=== PATIENT | male | born 1955 | race Caucasian/White ===

== ENCOUNTER 2016-04-19 08:00 | Day surgery (SDC) | payer OTHER ==
[~2016-04-19] VITALS: Ht 172.7 cm; Wt 86.2 kg
[~2016-04-19 08:00] MED LIST: 0.9% Sodium Chloride 1,000 ML IV PRN; ACYC400T2 PO; ACYC5CRE2 TP; ASCO100089 PO; CALC1POW29 MC; CALC1POW29 PO; CARB1TAB14 PO; CHOL10008 PO; CYAN500 PO; DOCU250C2 PO; ENTA200T6 PO; KRIL1CAP19 PO; MULT-1018 PO; RASA1TAB2 PO; SILD20TA14 PO; VARI1940 SQ; VITA400C66 PO; fentaNYL-PF 50 mCg/mL 2 mL Inj IVPUSH PRN
[2016-04-19 08:21] VITALS: BP 119/81; PULSE 90; RESP 16; O2SAT 96
[2016-04-19] MEDS ORDERED: ROTI1PAT8 TD (08:32)
[2016-04-19] MEDS ORDERED: 0.9% Sodium Chloride 1,000 ML IV PRN (08:54)
[2016-04-19] MEDS ORDERED: Sodium Chloride LOK Flush 10 mL Syringe IV PRN (08:55)
[2016-04-19] MEDS ORDERED: fentaNYL-PF 50 mCg/mL 2 mL Inj IVPUSH PRN (08:55)
[2016-04-19 09:21] VITALS: BP 126/83; PULSE 72; RESP 12; O2SAT 92
[2016-04-19 09:30] VITALS: BP 130/69; PULSE 73; RESP 14; O2SAT 90
[2016-04-19 09:40] VITALS: BP 138/69; PULSE 77; RESP 16; O2SAT 96
--- NOTE | 2016-04-19 09:42 | ENDO ---
[address] [address] ENDOSCOPY PROCEDURE PATIENT: JARRED REYNOLDS : 1955 MR#: [id number] ADMIT: 04/19/2016 JOB ID: [id number] DATE: 04/19/2016 PREOPERATIVE DIAGNOSIS: Personal history of colon polyps. POSTOPERATIVE DIAGNOSIS: Minimal sigmoid diverticulosis. OPERATION: Colonoscopy to cecum. SURGEON: Bruce Nina MD. INDICATIONS: A 60-year-old man who has a personal history of colon polyps. He also has all multi-fenestrated incisional hernia and he is being evaluated for potential repair. He has not had a colonoscopy for a number years and was recommended to do a colonoscopy first. FINDINGS: He had a fair prep. The scope was advanced to the cecum. It was withdrawn over 7 minutes 29 seconds. The appendiceal orifice clearly identified as was the ileocecal valve and right lower quadrant percussion sign. The only abnormality was a solitary left-sided diverticulum. Retroflexed views of the rectum were normal. I saw no polyps. There is no evidence of inflammation or vascular lesions. DESCRIPTION OF PROCEDURE: The procedure and sedation plan was discussed with the patient and nursing staff, and a procedural time-out was held. He received 4 mg of Versed and 100 mcg of fentanyl. Digital rectal exam was performed and then the Olympus PCF H 190 DL video colonoscope was passed transanally, advanced to the cecum, withdrawn with results as stated above using suction and irrigation as necessary and obtaining retroflexed views of the rectum. IMPRESSION: Minimal left-sided diverticulosis. Otherwise normal colonoscopy to cecum. PLAN: He will complete the CT scan of his abdomen and return to my office for followup. He needs a colonoscopy in 10 years.
[2016-04-19 09:50] VITALS: BP 117/69; PULSE 83; RESP 16; O2SAT 94
== END 2016-04-19 23:59 | disposition home or self-care (01) ==
LOC: END 08:00
PROVIDERS: ATTEND Surgery
DX: Z12.11 Encounter for screening for malignant neoplasm of colon (principal); Z86.010 Personal history of colon polyps; K57.30 Diverticulosis of large intestine without perforation or abscess without bleeding; G20 Parkinson's disease; K21.9 Gastro-esophageal reflux disease without esophagitis; K43.2 Incisional hernia without obstruction or gangrene; Z93.3 Colostomy status
CPT/HCPCS: G0105; G0500; J2250; J3010; J7030

== ENCOUNTER 2016-06-11 05:25 | Day surgery (SDC) | payer OTHER ==
[~2016-06-11] VITALS: Ht 172.7 cm; Wt 92.3 kg
[2016-06-11] VITALS (14 sets, daily range): BP systolic 106–151; BP diastolic 59–85; PULSE 73–98; RESP 9–18; O2SAT 93–97
[2016-06-11] MEDS: Lactated Ringer's 1,000 ML IV SCH ×4 (05:00→09:24)
[~2016-06-11 05:25] MED LIST changes: -0.9% Sodium Chloride 1,000 ML IV PRN; -ACYC400T2 PO; -ACYC5CRE2 TP; -CALC1POW29 PO; -DOCU250C2 PO; -KRIL1CAP19 PO; +ROTI1PAT8 TD; -SILD20TA14 PO; -VARI1940 SQ; -VITA400C66 PO; -fentaNYL-PF 50 mCg/mL 2 mL Inj IVPUSH PRN
[2016-06-11] MEDS ORDERED: Ketamine 10 mg/mL 20 mL Inj ONE (05:26)
[2016-06-11] MEDS ORDERED: Dexamethasone 4 mg/mL Inj ONE (05:26)
[2016-06-11] MEDS ORDERED: Propofol 10,000 mCg/mL 20 mL Inj ONE (05:26)
[2016-06-11] MEDS ORDERED: Neostigmine 1 mg/mL 10 mL Inj ONE (05:26)
[2016-06-11] MEDS ORDERED: Ondansetron 2 mg/mL 2 mL Inj ONE (05:26)
[2016-06-11] MEDS ORDERED: fentaNYL-PF 50 mCg/mL 2 mL Inj ONE (05:26)
[2016-06-11] MEDS ORDERED: EPHEDrine/NS 5 mg/mL 5 mL Syringe ONE (05:26)
[2016-06-11] MEDS ORDERED: Glycopyrrolate 0.2 MG/ML 1mL Inj ONE (05:26)
[2016-06-11] MEDS ORDERED: Rocuronium 10 mg/mL 5 mL Inj ONE (05:26)
[2016-06-11] MEDS ORDERED: CeFAZolin Inj 2 gm / 50mL D5W IV ONE (05:49)
[2016-06-11] MEDS ORDERED: CeFAZolin 2 Gm/50 mL D5W IV Premix IV ONE (06:00)
[2016-06-11] MEDS ORDERED: Heparin 5,000 Unit/mL Inj SUBQ ONE ×2 (06:00→08:00)
[2016-06-11] MEDS ORDERED: Lactated Ringer's 500 ML IV PRN (08:15)
[2016-06-11] MEDS ORDERED: Phenylephrine 10,000 mCg/mL Inj IVPUSH PRN (08:15)
[2016-06-11] MEDS ORDERED: Labetalol 5 mg/mL 4 mL Inj IV PRN (08:15)
[2016-06-11] MEDS ORDERED: Lactated Ringer's 1,000 ML IV SCH (08:15)
[2016-06-11] MEDS ORDERED: fentaNYL-PF 50 mCg/mL 2 mL Inj IVPUSH PRN (08:15)
[2016-06-11] MEDS ORDERED: EPHEDrine Sulfate 50 mg/mL Inj IVPUSH PRN (08:15)
[2016-06-11] MEDS ORDERED: Dexamethasone 4 mg/mL Inj IVPUSH PRN (08:15)
[2016-06-11] MEDS ORDERED: Atropine 0.4 mg/mL Inj IVPUSH PRN (08:15)
[2016-06-11] MEDS ORDERED: MetoCLOpramide 5 mg/mL 2 mL Inj IVPUSH PRN ×2 (08:15→10:40)
[2016-06-11] MEDS ORDERED: Ondansetron 2 mg/mL 2 mL Inj IVPUSH PRN ×2 (08:15→10:40)
[2016-06-11] MEDS ORDERED: HYDROmorphone 1 mg/mL Inj IVPUSH PRN (08:15)
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
[2016-06-11] MEDS ORDERED: Bupivacaine-MPF 0.5% 30 mL Inj INFILTRATE ONE (08:26)
--- NOTE | 2016-06-11 10:56 | PCM.ANEP1 ---
Post Anesthesia Phase 1 PACU Phase 1 Assessment Date of Service: Jun 11, 2016 Vital Signs Vital Signs Date Time Temp Pulse Resp B/P Pulse Ox O2 Delivery O2 Flow Rate FiO2 06/11/16 10:50 76 16 119/75 96 Simple Mask 8 06/11/16 10:45 36.2 74 13 121/80 96 Simple Mask 8 06/11/16 10:40 79 17 119/75 96 Simple Mask 8 06/11/16 10:35 74 11 113/70 96 Simple Mask 8 06/11/16 10:30 74 11 107/59 96 Simple Mask 8 06/11/16 10:25 36.8 73 9 106/61 95 Simple Mask 8 06/11/16 05:54 36.2 83 16 111/72 97 Room Air Anesthetic Administered: GA Level of Alertness: Drowsy, not talking Pain: No Nausea or Vomiting: No Airway Device: Oralpharangeal Airway Oxygen Delivery: Simple Mask Lungs: Clear to Auscultation, Normal Air Movement Sen Palacio DO Jun 11, 2016 10:56
[2016-06-11] MEDS: Acetaminophen IV 1,000 MG in IV Premix 1 EACH IV PRN ×2 (11:02→11:21)
[2016-06-11] MEDS: Dextrose 5% Lactated Ringer's 1,000 ML IV SCH ×3 (11:57→21:48)
[2016-06-11] MEDS: Entacapone 200 mg Tablet PO SCH ×2 (13:04→19:46)
--- NOTE | 2016-06-11 13:21 | PCM.ANEP2 ---
Post Anesthesia Evaluation ASA/CMS Post Anesthesia Date of Service: Jun 11, 2016 VS in Patient's Normal Range?: Yes Resp Stable; Airway Patent?: Yes CV Function & Hydration Stable: Yes Mental Status Recovered?: Yes Pain control Satisfactory?: Yes N/V Control Satisfactory?: Yes Sen Palacio DO Jun 11, 2016 13:21
[2016-06-11] MEDS: Heparin 5,000 Unit/mL Inj SUBQ SCH (17:08)
[2016-06-11] MEDS: HYDROmorphone 1 mg/mL Inj IVPUSH PRN (18:10)
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
[2016-06-12 00:10] VITALS: BP 125/77; PULSE 88; RESP 16; O2SAT 95
[2016-06-12] MEDS: Heparin 5,000 Unit/mL Inj SUBQ SCH ×2 (00:42→07:57)
[2016-06-12] MEDS: HYDROmorphone 1 mg/mL Inj IVPUSH PRN ×2 (00:55→03:23)
[2016-06-12] MEDS: Entacapone 200 mg Tablet PO SCH (03:58)
[2016-06-12] MEDS ORDERED: AZILECT 1 MG PO SCH (04:00)
[2016-06-12 05:20] VITALS: BP 137/78; PULSE 85; RESP 17; O2SAT 95
--- NOTE | 2016-06-12 08:24 | PCM.DISURG ---
Surgical Discharge Instruction Date of Service Jun 12, 2016 Dates of Hospitalization Date of Hospital Admission Providers Admitting Physician: Primary Care Physician: Rosy Holman MD Attending Physician: Bruce Nina MD Discharge Diagnosis Discharge Diagnosis 1. Multi-fenestrated incarcerated midline incisional hernia. 2. Incarcerated hernia at old left colostomy site. 3. Obesity, BMI 30.9 Post Operative diagnosis Same Diet Discharge Diet: No restrictions Activity Discharge Activity-General: Balance rest and activity, Activity as energy allows, No lifting >15 pounds for 2 weeks, No driving while taking narcotic Dressing and Incisional Care Dressing Care: Keep dressing clean, dry & intact, Allow Steri Stripes to fall off, Remove outer dressing after 24 hrs Hygiene: May shower Additional Instructions Discharge Instructions Please keep abdominal binder on at all times until follow up in clinic. Follow Up Plan Follow-up Provider (F9): Bruce Nina MD Follow-up appointment: Weeks (2) Call your provider for: Fever, Chills, Increasing abdominal pain, Wound redness , Increasing wound pain, Warmth to touch, Discharge @ incision, pus discharge Marlo Baumann PA-C Jun 12, 2016 08:24
[2016-06-12] MEDS ORDERED: NEUPRO 8 MG TOPICAL SCH (08:30)
[2016-06-12] MEDS ORDERED: Ascorbic Acid 500 mg Tablet PO SCH (08:30)
--- NOTE | 2016-06-12 09:01 | PCM.PNSURG ---
Subjective Date of Service: Jun 12, 2016 Date of Service: Jun 12, 2016 Visit Information: Reason for Visit Incisional Hernia Surgery/Surgery Date [facility] HERNIA REPAIR 06/11/16 Post-Op Day # 1 Date of Admission: Hospital Day # 2 Subjective: Pt seen today in surgical room. Very few complaints elicited today. Although denies BM, has noted extensive flatus which is normal for him at this juncture. Denies nausea or vomiting or anything more than appropriate incisional abdominal tenderness. Denies chest pain, or shortness of breath. Postop General: No Complaints, No Shortness of Breath, No Chest Pain Gastrointestinal: Good Appetite, No N/V, Passing Flatus Pain Management: PO, Good Pain Control, No or Minimal Pain (appropriate incisional pain noted) Postop Activity: Ambulating Independently Objective Vital Sign- Last 8 Hours Date Time Temp Pulse Resp B/P Pulse Ox O2 Delivery O2 Flow Rate FiO2 06/12/16 05:20 36.7 85 17 137/78 95 Room Air Intake and Output- Last 8 Hour 06/12/16 Cumulative From/Thru 07:00 06/07/16 15:07 - 06/12/16 06:25 Intake Total 520 ml 3690 ml Output Total 1450 ml 1870 ml Balance -930 ml 1820 ml Intake Oral 520 ml 1440 ml IV Total 2250 ml Output Urine Total 1450 ml 1850 ml Estimated Blood Loss 20 ml # Bowel Movements 0 0 General: Alert, Oriented X3, Cooperative, No Acute Distress Lungs: Clear to Auscultation Heart: Regular Rate/Rhythm, Normal S1, Normal S2, No Murmurs/Rubs/Gallops Chest: clear to auscultation with good excursion. No wheezes. Abdomen: Soft, Appropriately tender, Non-distended, Normoactive bowel tones SURGICAL WOUND : Wound General Appearence: Steri Strips, Intact, Well Approximated, Incision Healing, No Erythema, No Discharge, No Inflammatory Changes Dressing & Drainage Status: Intact, Reinforced, No Purulent Drainage Extremities: Distal Pulses Palpable, Warm Assessment & Plan Impression POD #2 status post enterolysis of incarcerated incisional hernia and old colostomy site, Problems: (1) Incisional hernia Status: Acute ICD Code: K43.2 Plan Discharge to home today. Abdominal binder leave in place x 3 weeks. Follow up with Dr. Nina in post-op general surgery clinic in 2 weeks. Off work for 3 weeks. Naprosyn for pain control at discharge. Pain Management: Naprosyn 500mg every 6 hours prn pain Resuscitation Status: CPR: Attempt Resuscitation Marlo Baumann PA-C Jun 12, 2016 09:01
--- NOTE | 2016-06-12 09:15 | PCM.DC.SUR ---
Discharge Summary Date of Service: Jun 12, 2016 Date of Hospital Admission: June 11, 2016 Date of Operation(s): June 11, 2016 Date of Discharge: June 12, 2016 Diagnosis at Time of Discharge 1. Multi-fenestrated incarcerated midline incisional hernia. 2. Incarcerated hernia at old left colostomy site. Problems: (1) Incisional hernia Status: Acute ICD Code: K43.2 (2) Parkinson disease Status: Acute ICD Code: G20 Operation 1. Exploratory laparoscopy with extensive lysis of adhesions. 2. Repair multi-fenestrated incarcerated midline incisional hernia with mesh. 3. Repair of multi-fenestrated incarcerated left colostomy site hernia with mesh. Brief History and Physical: Vital Sign- Last 8 Hours Date Time Temp Pulse Resp B/P Pulse Ox O2 Delivery O2 Flow Rate FiO2 06/12/16 05:20 36.7 85 17 137/78 95 Room Air Intake and Output- Last 8 Hour 06/12/16 Cumulative From/Thru 07:00 06/07/16 15:07 - 06/12/16 06:25 Intake Total 520 ml 3690 ml Output Total 1450 ml 1870 ml Balance -930 ml 1820 ml Intake Oral 520 ml 1440 ml IV Total 2250 ml Output Urine Total 1450 ml 1850 ml Estimated Blood Loss 20 ml # Bowel Movements 0 0 General: Alert, Oriented X3, Cooperative, No Acute Distress Lungs: Clear to Auscultation Heart: Regular Rate/Rhythm, Normal S1, Normal S2, No Murmurs/Rubs/Gallops Chest: clear to auscultation with good excursion. No wheezes. Abdomen: Soft, Appropriately tender, Non-distended, Normoactive bowel tones SURGICAL WOUND : Wound General Appearence: Steri Strips, Intact, Well Approximated, Incision Healing, No Erythema, No Discharge, No Inflammatory Changes Dressing & Drainage Status: Intact, Reinforced, No Purulent Drainage Extremities: Distal Pulses Palpable, Warm Consultants: None Hospital Course: Patient was taken to the operating room for repair of his incarcerated hernia. Please see operative note for details. The procedure was performed without complication and he tolerated the procedure well. He was then transferred to the surgical floor where he remained for the balance of his hospital stay. On postoperative day number 1 he was found to have excellent pain control and was tolerating a diet. He was then discharged to home in good condition. Pathology: None. Disposition: Good condition Follow-up Plan: Patient to follow up with Dr. Bruce Nina in his Surgery clinic in 2 weeks. Patient to leave abdominal binder in place for next 3 weeks and to avoid straining. Ascorbic Acid (Vitamin C) 1,000 Mg Tab.chew 1,000 MG PO DAILY (Reported) Calcium Carbonate (Coral Calcium) 1 Gm Powder 500 MG MC BID (Reported) Carbidopa/Levodopa 25-100 mg (Carbidopa/Levodopa 25-100 mg) 1 Each Tablet 2 TABLET PO TID (Reported) Cholecalciferol (Vitamin D3) (Vitamin D3) 1,000 Unit Tab.chew 1,000 UNIT PO DAILY (Reported) Cyanocobalamin (Vitamin B12) 500 Mcg Tablet 1,000 MCG PO DAILY (Reported) Entacapone (Entacapone) 200 Mg Tablet 200 MG PO TID (Reported) Multivitamin (Multi Vitamin Daily) 1 Each Tablet 1 EACH PO DAILY (Reported) Rasagiline Mesylate (Azilect) 1 Mg Tablet 1 MG PO DAILY (Reported) Rotigotine (Neupro) 1 Each Patch.td24 1 EACH TD DAILY (Reported) copies to: Rosy Holman MD, Samuel L PA-C Jun 12, 2016 09:15
== END 2016-06-12 09:30 | disposition home or self-care (01) ==
LOC: SAS 05:25 → OSC 11:58 → SAS 06-12 09:30
PROVIDERS: ATTEND Surgery
DX: K43.0 Incisional hernia with obstruction, without gangrene (principal); K43.3 Parastomal hernia with obstruction, without gangrene; K56.5 Intestinal adhesions [bands] with obstruction (postinfection); M19.90 Unspecified osteoarthritis, unspecified site; G89.18 Other acute postprocedural pain; G20 Parkinson's disease; M54.2 Cervicalgia; K21.9 Gastro-esophageal reflux disease without esophagitis; K44.9 Diaphragmatic hernia without obstruction or gangrene
CPT/HCPCS: 49655; 96374; 96376; C1781; J0131; J0690; J1100; J1170; J1644; J1885; J2250; J2405; J2710; J3010; J7120